=== PATIENT | female | born 1980 | race African-American/Black ===

== ENCOUNTER 2018-03-28 22:36 | Emergency (ER) | payer MEDICAID ==
[~2018-03-28] VITALS: Ht 165.1 cm; Wt 62.0 kg
[~2018-03-28 22:36] MED LIST: SEROQUEL
[2018-03-29] MEDS ORDERED: IBUPROFEN 600MG TABLET PO STA (04:45)
[2018-03-29] MEDS ORDERED: LIDOCAINE HCL 1% 20ML VIAL (Pyxis) INJ INFIL ONE (06:45)
[2018-03-29 08:17] VITALS: BP 142/74
== END 2018-03-29 08:19 | disposition home or self-care (01) ==
LOC: ER 22:36
DX: T18.0XXA Foreign body in mouth, initial encounter (principal); M79.5 Residual foreign body in soft tissue; Y04.0XXA Assault by unarmed brawl or fight, initial encounter; Y93.89 Activity, other specified; Y92.098 Other place in other non-institutional residence as the place of occurrence of the external cause; F17.210 Nicotine dependence, cigarettes, uncomplicated; F12.90 Cannabis use, unspecified, uncomplicated; Z88.0 Allergy status to penicillin
CPT/HCPCS: 10120; 99284; J3490